=== PATIENT | male | born 1990 | race Caucasian/White ===

== ENCOUNTER 2016-09-18 16:55 | Inpatient (IN) | payer MEDICAID, OTHER ==
[2016-09-18] MEDS ORDERED: MAGNESIUM HYDROXIDE 30 ML UDCUP PO PRN (18:22)
[2016-09-18] MEDS ORDERED: MAG HYDROX/AL HYDROX/SIMETH 30 ML UDCUP PO PRN (18:22)
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
[2016-09-18] MEDS: LITHIUM CARBONATE ER 300 MG TAB PO SCH (21:11)
[2016-09-18 21:28] LABS: PHENCYCLIDINE URINE BCH < 6 ng/ml (NEGATIVE); PHENCYCLIDINE URINE BCH NEGATIVE (NEGATIVE); TETRAHYDROCANNABINOL URINE < 5 ng/mL (NEGATIVE); TETRAHYDROCANNABINOL URINE NEGATIVE (NEGATIVE)
[2016-09-19 07:42] LABS: % IMMATURE GRANULYOCYTES 0.1 % (0.0-1.1); ABSOLUTE IMMATURE GRANULOCYTES 0.01 10^3/uL (0.00-0.10); ADD DIFF? NO; ADD MORPH? NO; ADD SCAN? NO; ATYPICAL LYMPHOCYTE FLAG 0 (0-99); FRAGMENT RBC FLAG 0 (0-99); HEMATOCRIT 42.5 % (40.0-51.0); HEMOGLOBIN 14.9 g/dL (13.7-17.5); LEFT SHIFT FLG 10 (0-99); LIPEMIA HEMOLYSIS FLAG 90 (0-99); MEAN CELL HEMOGLOBIN 32.5 pg (27.9-34.1); MEAN CELL HEMOGLOBIN CONCENTR. 35.1 g/dL (32.4-36.7); MEAN CELL VOLUME 92.8 fL (81.5-99.8); PLATELET CLUMPS FLAG 0 (0-99); PLATELET COUNT 179 10^3/uL (150-400); RED BLOOD CELL COUNT 4.58 10^6/uL (4.40-6.38)
[2016-09-19 08:25] LABS: ALANINE AMINOTRANSFERASE 32 IU/L (21-72); ALBUMIN 4.4 g/dL (3.5-5.0); ALKALINE PHOSPHATASE 42 IU/L (38-126); ANION GAP 14 mEq/L (8-16); ASPARTATE AMINOTRANSFERASE 20 IU/L (17-59); BILIRUBIN,TOTAL 1.4 mg/dL (0.1-1.4); CALCIUM 9.6 mg/dL (8.5-10.4); CARBON DIOXIDE 23 mEq/l (22-31); CHLORIDE 105 mEq/L (97-110); CREATININE 1.2 mg/dL (0.7-1.3); GLOMERULAR FILTRATION RATE > 60; GLUCOSE 80 mg/dL (70-100); POTASSIUM 3.9 mEq/L (3.5-5.2); SODIUM 142 mEq/L (134-144); TOTAL PROTEIN 6.7 g/dL (6.3-8.2)
[2016-09-19] MEDS: FLUoxetine 20 MG CAP PO SCH (09:04)
[2016-09-19] MEDS: PROPRANOLOL SR 80 MG CAP PO SCH (09:04)
[2016-09-19] MEDS: ACETAMINOPHEN 325 MG TAB PO PRN (09:44)
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
--- NOTE | 2016-09-19 16:51 | SOAPPROG ---
DICK Progress Note Assessment/Plan: Assessment: Plan: 09/19/16 16:53 Remains closed, guarded. I question the extent of his schizoid personality and social anxiety. These could be one and the same or separate issues. He continues to appear depressed. Minimally participatory due to degree of interpersonal inhibition. I discussed various options for ongoing medication management and he is agreeable to adding doxepin 25mg at HS in place of benzo's or Ambien. This will help with sleep and hopefully provide some antidepressant augmentation. The combination with fluoxetine 40mg will increase available drug significantly. The risks, benefits and alternatives of this are reviewed. Subjective: Pt seen, discussed with staff. Reports feeling "OK." Discussed current level of functioning focusing on pt's social anxiety and tendency to isolate. He reports having no friends at all and identifies his parents as his only social contacts. He describes pervasive generalized anxiety and being uncomfortable even at home alone. This feeds in to his sense of disconnectedness and hopelessness. He is amenable to intensifying psychotherapy in regards to these topics. Objective: Vital Signs Temp Pulse Resp BP Pulse Ox 36.8 C 74 14 135/84 H 96 09/19/16 06:00 09/19/16 09:04 09/19/16 06:00 09/19/16 09:04 09/19/16 06:00 Laboratory Results 09/19/16 06:00 09/19/16 06:00 MSE: Moderately anxious, guarded. Speech is low in tone, slow. Affect is constricted, stable. Mood is "OK." TP linear. TC reveals no evidence of psychosis. - Time Spent With Patient Time Spent With Patient: 25" - Pending Discharge Pending Discharge Within 24 Hours: No Pending Discharge Within 48 Hours: No ICD10 Worksheet Patient Problems: Problems Problem Status Onset Major depressive disorder, recurrent, severe w/o psychotic behavior Acute - ICD10 Problem Qualifiers (1) Major depressive disorder, recurrent, severe w/o psychotic behavior
[2016-09-19] MEDS ORDERED: LITHIUM CARBONATE ER 300 MG TAB PO ONE (18:00)
[2016-09-19] MEDS: MELATONIN 3 MG TAB PO SCH (20:39)
[2016-09-19] MEDS: DOXEPIN HCL 25 MG CAP PO SCH (20:39)
[2016-09-20] MEDS ORDERED: NS 1,000 ML IV ONE (04:00)
[2016-09-20] MEDS ORDERED: THEOPHYLLINE ORAL SOLUTION 80 MG/15 ML UDCUP PO ONE (04:00)
[2016-09-20] MEDS ORDERED: LIDOCAINE 2% 5 ML SDV ID ONE (04:00)
[2016-09-20] MEDS ORDERED: CITRIC ACID/SODIUM CITRATE 30 ML UDCUP PO ONE (04:00)
[2016-09-20] MEDS ORDERED: ONDANSETRON DISINTEGRATING 4 MG TAB PO ONE (04:00)
[2016-09-20] MEDS ORDERED: ONDANSETRON DISINTEGRATING 4 MG TAB ONE (05:40)
[2016-09-20] MEDS ORDERED: CITRIC ACID/SODIUM CITRATE 30 ML UDCUP ONE (05:41)
[2016-09-20] MEDS ORDERED: HYDROCODONE/APAP 5/325 TAB ONE (06:55)
[2016-09-20] MEDS ORDERED: HYDROCODONE/APAP 5/325 TAB PO PRN (06:58)
[2016-09-20] MEDS: FLUoxetine 20 MG CAP PO SCH (08:28)
[2016-09-20] MEDS: PROPRANOLOL SR 80 MG CAP PO SCH (08:28)
--- NOTE | 2016-09-20 14:20 | SOAPPROG ---
DICK Progress Note Assessment/Plan: Assessment: Plan: 09/19/16 16:53 Remains closed, guarded. I question the extent of his schizoid personality and social anxiety. These could be one and the same or separate issues. He continues to appear depressed. Minimally participatory due to degree of interpersonal inhibition. I discussed various options for ongoing medication management and he is agreeable to adding doxepin 25mg at HS in place of benzo's or Ambien. This will help with sleep and hopefully provide some antidepressant augmentation. The combination with fluoxetine 40mg will increase available drug significantly. The risks, benefits and alternatives of this are reviewed. 09/20/16 14:19 Some improvement. Remains guarded. Will continue to work with him to open up and address social anxiety. D/c planning underway to find new psychiatrist. Plan to d/c Friday or Friday. Subjective: Pt seen, discussed with staff. Reports feeling "pretty good" this morning. Staff notes him to be delayed and hesitant, seemingly guarded. He slept well with doxepin. No SE's noted. Underwent ECT this morning without complication. Objective: Vital Signs Temp Pulse Resp BP Pulse Ox 36.9 C 94 12 128/76 H 96 09/20/16 09:15 09/20/16 09:15 09/20/16 09:15 09/20/16 09:15 09/20/16 09:15 Laboratory Results 09/19/16 06:00 09/19/16 06:00 MSE; Calm, coop. Affect is constricted, stable. Mood is "OK." TP linear, though delayed, abbreviated. TP linear. TC reveals no psychosis. Denies SI. - Time Spent With Patient Time Spent With Patient: 35" - Pending Discharge Pending Discharge Within 24 Hours: No Pending Discharge Within 48 Hours: No ICD10 Worksheet Patient Problems: Problems Problem Status Onset Major depressive disorder, recurrent, severe w/o psychotic behavior Acute - ICD10 Problem Qualifiers (1) Major depressive disorder, recurrent, severe w/o psychotic behavior
[2016-09-20] MEDS: LITHIUM CARBONATE ER 300 MG TAB PO SCH (20:54)
[2016-09-20] MEDS: MELATONIN 3 MG TAB PO SCH (20:54)
[2016-09-20] MEDS: DOXEPIN HCL 25 MG CAP PO SCH (20:54)
[2016-09-21] MEDS: FLUoxetine 20 MG CAP PO SCH (09:09)
[2016-09-21] MEDS: PROPRANOLOL SR 80 MG CAP PO SCH (09:09)
[2016-09-21] MEDS: ACETAMINOPHEN 325 MG TAB PO PRN ×2 (10:27→15:34)
--- NOTE | 2016-09-21 18:27 | SOAPPROG ---
SOAP Progress Note Assessment/Plan: Assessment: 25yo with hx of treatment resistant depr and schizoid traits 09/21/16 18:32 - c/o tinnitus since yesterday, 11/28 regarding intensity. High-pitched, requested use of his AG privs with mother to test if tinnitis was related to being inside hospital. initially thought sound was from vent in room. MSE: calm, cooperative, good eye contact, nml speech vol/rate, flattened/ blunted affect, mood depressed, thoughts linear/goal-directed, no AH/VH, denied any paranoid ideations, no overt delusions noted, +passive SI, no plan/intent, denied thoughts to harm others, i/j both seemed intact. physically noted with no resting tremor, but does have mild BUE intention tremor on FNF, no ataxia, denied any med s/e or new c/o except tinnitus as noted. call to have pharmacy review interactions: [place] s/e includes otic tinnitus as possible sign of Li toxicity TCADs can exac/cause tinnitus. Doxepin? unlikely but is newest med. Prozac + Li may result in possible incr Li conc PLAN: -pt agreeable to d/c Doxepin -will check Li level, trough for Lithobid ER but ?may be lower than actual trough due to almost 24hr after last dose. -pt worried abt insomnia if off doxepin, and ambien. Agreed to Seroquel 25mg hs 09/22/16 14:14 Late entry per staff slept 9hr. had placed pt on SP from AG privs due to his voiced SI altho no plan/intent on interview, c/o anxiety this AM. Given zyprexa 5mg x 1. denied problems with seroquel last pm. still reporting tinnitus. Li level 0.7. +fine intention tremor on exam but no resting tremor and denies any interference with functioning. reports +passive SI due to "this is no way to live", with his depression and physical complaints, but thinks he may be feeling more this way inside this hospital setting and would like to be discharged. No plan/intent to harm self, in hospital, feels 6/10 SI presently but admits this is decr from 8-9/10 prior to admission. mother visiting, and present during interview. Discussed over phone with Dr. Reyburn regarding medication changes. Pt w/hx of sensitivity to several different antipsychotics with EPS and akathisia. Reviewed medications with patient and agreed to following changes: PLAN: -Incr Seroquel to 50mg qhs, will help with sleep instead of resuming Doxepin, and to avoid BZD/ambienm, Also at higher doses may help with BMD depression, and less likely EPS s/e -d/c Propranolol LA and monitor. B-blockers known associated with depression -continue other meds as before and ECT Objective: Vital Signs Temp Pulse Resp BP Pulse Ox 36.6 C 90 12 121/66 H 94 09/21/16 06:00 09/21/16 09:00 09/21/16 09:00 09/21/16 09:00 09/21/16 06:00 Laboratory Results 09/19/16 06:00 09/19/16 06:00 - Time Spent With Patient Time Spent With Patient: 45min on 09/21/16 35min on 09/22/16 - Pending Discharge Pending Discharge Within 24 Hours: No Pending Discharge Within 48 Hours: No ICD10 Worksheet Patient Problems: Problems Problem Status Onset Major depressive disorder, recurrent, severe w/o psychotic behavior Acute
[2016-09-21] MEDS ORDERED: QUEtiapine FUMARATE 25 MG TAB PO PRN (18:57)
[2016-09-21] MEDS: LITHIUM CARBONATE ER 300 MG TAB PO SCH (19:24)
[2016-09-21] MEDS: MELATONIN 3 MG TAB PO SCH (19:25)
--- NOTE | 2016-09-21 19:41 | SOAPPROG ---
SOAP Progress Note Assessment/Plan: Assessment: 25yo with hx of treatment depr Plan: 09/21/16 18:32 c/o tinnitus since yesterday, 11/28 no tremor per pharmacy, [place] s/e includes otic tinnitus as possible sign of Li toxicity TCADs can exac/cause tinnitus. Doxepin? Prozac + Li may result in possible incr Li concentration or incr risk serotonin syndrome -will check Li level, trough for Lithobid ER but may be lower than actual trough due to almost 24hr after last dose. 09/21/16 18:58 Objective: Vital Signs Temp Pulse Resp BP Pulse Ox 36.6 C 90 12 121/66 H 94 09/21/16 06:00 09/21/16 09:00 09/21/16 09:00 09/21/16 09:00 09/21/16 06:00 Laboratory Results 09/19/16 06:00 09/19/16 06:00 ICD10 Worksheet Patient Problems: Problems Problem Status Onset Major depressive disorder, recurrent, severe w/o psychotic behavior Acute
[2016-09-21] MEDS: ACETAMINOPHEN 500 MG TAB PO PRN (20:49)
[2016-09-22] MEDS: PROPRANOLOL SR 80 MG CAP PO SCH (08:34)
[2016-09-22] MEDS: FLUoxetine 20 MG CAP PO SCH (08:34)
[2016-09-22] MEDS: ACETAMINOPHEN 500 MG TAB PO PRN ×3 (08:37→18:31)
[2016-09-22 08:53] LABS: LITHIUM 0.7 mEq/L (0.6-1.2)
[2016-09-22] MEDS ORDERED: OLANZapine 5 MG TAB ONE (12:05)
[2016-09-22] MEDS ORDERED: OLANZapine DISINTEGR 5 MG TAB ONE (12:06)
[2016-09-22] MEDS ORDERED: OLANZapine DISINTEGR 5 MG TAB PO ONE (13:00)
[2016-09-22] MEDS: LITHIUM CARBONATE ER 300 MG TAB PO SCH (19:13)
[2016-09-22] MEDS: MELATONIN 3 MG TAB PO SCH (19:13)
[2016-09-22] MEDS: QUEtiapine FUMARATE 50 MG TAB PO SCH (20:58)
[2016-09-23] MEDS ORDERED: ONDANSETRON DISINTEGRATING 4 MG TAB PO ONE (05:00)
[2016-09-23] MEDS ORDERED: NS 1,000 ML IV ONE (05:00)
[2016-09-23] MEDS ORDERED: CITRIC ACID/SODIUM CITRATE 30 ML UDCUP PO ONE (05:00)
[2016-09-23] MEDS ORDERED: LIDOCAINE 2% 5 ML SDV ID ONE (05:00)
[2016-09-23] MEDS ORDERED: QUEtiapine FUMARATE 25 MG TAB PO PRN (10:55)
[2016-09-23] MEDS: FLUoxetine 20 MG CAP PO SCH (11:27)
[2016-09-23] MEDS ORDERED: THEOPHYLLINE ORAL SOLUTION 80 MG/15 ML UDCUP PO ONE (11:45)
[2016-09-23] MEDS: THEOPHYLLINE ORAL SOLUTION 80 MG/15 ML UDCUP PO ONE (12:02)
--- NOTE | 2016-09-23 13:14 | SOAPPROG ---
DICK Progress Note Assessment/Plan: Assessment: Plan: 09/19/16 16:53 Remains closed, guarded. I question the extent of his schizoid personality and social anxiety. These could be one and the same or separate issues. He continues to appear depressed. Minimally participatory due to degree of interpersonal inhibition. I discussed various options for ongoing medication management and he is agreeable to adding doxepin 25mg at HS in place of benzo's or Ambien. This will help with sleep and hopefully provide some antidepressant augmentation. The combination with fluoxetine 40mg will increase available drug significantly. The risks, benefits and alternatives of this are reviewed. 09/20/16 14:19 Some improvement. Remains guarded. Will continue to work with him to open up and address social anxiety. D/c planning underway to find new psychiatrist. Plan to d/c Friday or Friday. 09/23/16 13:16 Improved. Will CCM with ECT today. Family meeting and likely d/c tomorrow if SI remain at bay. Subjective: Pt seen, discussed with staff and Dr. Fierro, chart reviewed. He reports "having an epiphany" last night. He states he "had a really vivid dream and when I woke up I realized I need to pay attention to my needs." He states he needs to work out and eat well, avoid substances and socialize more. He appears brighter. I discussed the need for a family meeting with patient and his mother and will schedule this for tomorrow prior to d/c. SI increased over the weekend, stating he was 7/10 yesterday. Today he states he is 0/10. Objective: Vital Signs Temp Pulse Resp BP Pulse Ox 36.6 C 81 16 123/74 H 96 09/22/16 06:00 09/22/16 15:59 09/22/16 15:59 09/22/16 15:59 09/22/16 15:59 Laboratory Results 09/19/16 06:00 09/19/16 06:00 MSE: Calm, coop. Affect is brighter, smiling approp. Mood is "much better." TP linear. TC reveals less internal preoccupation, more fluent and spontaneous response. Denies current SI. - Time Spent With Patient Time Spent With Patient: 35" ICD10 Worksheet Patient Problems: Problems Problem Status Onset Major depressive disorder, recurrent, severe w/o psychotic behavior Acute - ICD10 Problem Qualifiers (1) Major depressive disorder, recurrent, severe w/o psychotic behavior
[2016-09-23 17:02] VITALS: RESP 14
[2016-09-23] MEDS: MELATONIN 3 MG TAB PO SCH (21:34)
[2016-09-23] MEDS: LITHIUM CARBONATE ER 300 MG TAB PO SCH (21:34)
[2016-09-23] MEDS: QUEtiapine FUMARATE 50 MG TAB PO SCH (21:35)
[2016-09-23] MEDS: ACETAMINOPHEN 500 MG TAB PO PRN (21:37)
[2016-09-24 06:22] VITALS: BP 122/69; PULSE 91; TEMP 98.2; O2SAT 94
[2016-09-24] MEDS: THEOPHYLLINE ORAL SOLUTION 80 MG/15 ML UDCUP PO ONE (07:34)
[2016-09-24] MEDS: FLUoxetine 20 MG CAP PO SCH (08:30)
[2016-09-24] MEDS: ACETAMINOPHEN 500 MG TAB PO PRN (08:56)
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
== END 2016-09-24 12:40 | disposition home or self-care (01) | DRG 885 ==
LOC: BBEH 16:55
PROVIDERS: ADMIT Psychiatry & Neurology Psychiatry; ATTEND Psychiatry & Neurology Psychiatry
PROC: [UNRECOGNIZED PROCEDURE] (principal; 2016-09-19)
DX: F33.2 Major depressive disorder, recurrent severe without psychotic features (principal); F60.1 Schizoid personality disorder; Z72.89 Other problems related to lifestyle; Z60.4 Social exclusion and rejection
CPT/HCPCS: 80307; G0480